=== PATIENT | female | born 1955 | race Two or more races ===

== ENCOUNTER 2017-06-01 22:19 | Emergency (ER) | payer BC, MEDICAID ==
[~2017-06-01] VITALS: Ht 154.9 cm; Wt 89.8 kg
[~2017-06-01 22:19] MED LIST: AZITHROMYCIN250 MG PO; CYCLOBENZAPRINE10 MG PO; DICLOFENAC SODI75 MG PO; LEVAQUIN500 MG PO; MOBIC15 MG PO; fosamax
[2017-06-01] MEDS ORDERED: LOSARTAN POTASS25 MG ORAL (22:32)
[2017-06-01] MEDS ORDERED: ATORVASTATIN CA20 MG ORAL (22:32)
[2017-06-01] MEDS ORDERED: ASPIR 8181 MG ORAL (22:32)
[2017-06-01] MEDS ORDERED: METFORMIN HCL500 M1 ORAL (22:32)
--- NOTE | 2017-06-01 22:55 | Emergency Room Report ---
History of Present Illness General Chief Complaint: Headache Source: Patient Present Illness HPI 62-year-old female, history of fibromyalgia, CAD with ? Stent (patient his insurance poor historian), complaining of one week of dyspnea and ear fullness and headache. States that she has shortness of breath both at rest and on exertion, worse with exertion. No chest pain. No fever no chills. Has had a dry cough. Also states that she has fullness in her left ear. Also complaining that she has had a slight left-sided headache, intermittent, no blurry vision, no neck pain. States that she has headaches similar to this in the past. Allergies: Uncoded Allergies: DYE (Allergy, Unknown, 10/15/10) Patient History Past Medical History: see triage record Past Surgical History: none Pertinent Family History: none Last Menstrual Period: n/a Reviewed Nursing Documentation: PMH: Agreed, PSxH: Agreed Nursing Documentation-PMH Hx Cardiac Problems: Yes - high cholesterol Hx Hypertension: Yes Hx Diabetes: Yes - dm2 Review of Systems All Other Systems: negative except mentioned in HPI Physical Exam Vital Signs Date Time Temp Pulse Resp B/P (MAP) Pulse Ox O2 Delivery O2 Flow Rate FiO2 06/01/17 22:24 97.5 63 16 155/94 97 Room Air Medical Decision Making Diagnostic Impression: Primary Impression: Dyspnea ER Course 62-year-old female, multiple complaints, left-sided headache, ear fullness, also one week of shortness of breath DDX: Left ears unremarkable Headache likely primary headache, migraine. No neurological signs or symptoms at this time to suggest acute intracranial pathology. Does not appear to be in pain right now and Shortness of breath: Viral URI, pneumonia, CHF, ACS. No PE risk factors. Plan: Obtain labs, ua, EKG, CXR ER course: Patient has been monitored during ED stay, HD stable conversing with family, nad LABS UNREMARKABLE she appears nontoxic Disposition: Patient is to be dc HOME Please note that this Emergency Department Report was dictated using [employer] winding machine operator technology software, occasionally this can lead to erroneous entry secondary to interpretation by the dictation equipment. EKG Diagnostic Results EP Interpretation: Yes Rate: normal Rhythm: NSR ST Segments: No acute changes ASA given to patient: No Rhythm Strip EP Interpretation: Yes Rate: [ ] Rhythm: NSR, no PVCs, no ectopy Chest X-ray* CXR: Ordered: Yes 1 view Indication: Shortness of breath EP interpretation: Yes Interpretation: No consolidation, no effusion, no PTX, no acute cardiopulmonary disease Impression: No acute disease Electronically signed by Romelia Jett MD Laboratory Tests Test 06/01/17 22:50 06/01/17 23:00 Urine Color Pale yellow Urine Appearance Clear Urine pH 8 (4.5-8.0) Urine Specific [place] 1.010 (1.005-1.035) Urine Protein Negative (NEGATIVE) Urine Glucose (UA) Negative (NEGATIVE) Urine Ketones Negative (NEGATIVE) Urine Occult Blood Negative (NEGATIVE) Urine Nitrite Negative (NEGATIVE) Urine Bilirubin Negative (NEGATIVE) Urine Urobilinogen Normal MG/DL (0.0-1.0) Urine Leukocyte Esterase Negative (NEGATIVE) White Blood Count 7.9 K/UL (4.8-10.8) Red Blood Count 4.54 M/UL (4.20-5.40) Hemoglobin 14.1 G/DL (12.0-16.0) Hematocrit 40.9 % (37.0-47.0) Mean Corpuscular Volume 90 FL (80-99) Mean Corpuscular Hemoglobin 31.2 PG (27.0-31.0) H Mean Corpuscular Hemoglobin Concent 34.6 G/DL (32.0-36.0) Red Cell Distribution Width 12.1 % (11.6-14.8) Platelet Count 258 K/UL (150-450) Mean Platelet Volume 8.4 FL (6.5-10.1) Neutrophils (%) (Auto) 55.4 % (45.0-75.0) Lymphocytes (%) (Auto) 30.6 % (20.0-45.0) Monocytes (%) (Auto) 8.3 % (1.0-10.0) Eosinophils (%) (Auto) 5.0 % (0.0-3.0) H Basophils (%) (Auto) 0.8 % (0.0-2.0) Sodium Level 140 MMOL/L (136-145) Potassium Level 3.8 MMOL/L (3.5-5.1) Chloride Level 105 MMOL/L (98-107) Carbon Dioxide Level 27 MMOL/L (21-32) Anion Gap 8 mmol/L (5-15) Blood Urea Nitrogen 11 mg/dL (7-18) Creatinine 0.7 MG/DL (0.55-1.30) Estimate Glomerular Filtration Rate > 60 mL/min (>60) Glucose Level 137 MG/DL (74-106) H Calcium Level 9.2 MG/DL (8.5-10.1) Total Bilirubin 0.4 MG/DL (0.2-1.0) Aspartate Amino Transferase (AST) 38 U/L (15-37) H Alanine Aminotransferase (ALT) 44 U/L (12-78) Alkaline Phosphatase 102 U/L (46-116) Troponin I 0.000 ng/mL (0.000-0.056) Pro-B-Type Natriuretic Peptide 45 pg/mL (0-125) Total Protein 8.0 G/DL (6.4-8.2) Albumin 3.7 G/DL (3.4-5.0) Globulin 4.3 g/dL Albumin/Globulin Ratio 0.9 (1.0-2.7) L Last Vital Signs Date Time Temp Pulse Resp B/P (MAP) Pulse Ox O2 Delivery O2 Flow Rate FiO2 06/01/17 22:24 97.5 63 16 155/94 97 Room Air Disposition: HOME, SELF-CARE Condition: Improved Patient Instructions: General Headache Without Cause, Shortness of Breath, Easy -to-Read Romelia Jett M.D. Jun 01, 2017 22:55
[2017-06-01 23:22] LABS: BASOPHILS % (AUTO) 0.8 % (0.0-2.0); HEMATOCRIT 40.9 % (37.0-47.0); HEMOGLOBIN 14.1 G/DL (12.0-16.0); LYMPHOCYTES % (AUTO) 30.6 % (20.0-45.0); MEAN CORPUSCULAR VOLUME 90 FL (80-99); MONOCYTES % (AUTO) 8.3 % (1.0-10.0); NEUTROPHILS % (AUTO) 55.4 % (45.0-75.0); PLATELET COUNT 258 K/UL (150-450); RED BLOOD COUNT 4.54 M/UL (4.20-5.40); RED CELL DISTRIBUTION WIDTH 12.1 % (11.6-14.8); WHITE BLOOD COUNT 7.9 K/UL (4.8-10.8)
[2017-06-01 23:24] LABS: APPEARANCE,URINE CLEAR; BILIRUBIN, URINE NEGATIVE (NEGATIVE); COLOR,URINE PALE YELLOW; GLUCOSE, URINE (UA) NEGATIVE (NEGATIVE); KETONES,URINE NEGATIVE (NEGATIVE); LEUKOCYTE ESTERASE ,URINE NEGATIVE (NEGATIVE); NITRITE,URINE NEGATIVE (NEGATIVE); PH,URINE 8 (4.5-8.0); PROTEIN,URINE NEGATIVE (NEGATIVE); UROBILINOGEN,URINE NORMAL MG/DL (0.0-1.0)
[2017-06-01 23:38] LABS: ANION GAP 8 mmol/L (5-15); BLOOD UREA NITROGEN 11 mg/dL (7-18); CALCIUM 9.2 MG/DL (8.5-10.1); CARBON DIOXIDE 27 MMOL/L (21-32); CHLORIDE 105 MMOL/L (98-107); CREATININE 0.7 MG/DL (0.55-1.30); POTASSIUM 3.8 MMOL/L (3.5-5.1); SODIUM 140 MMOL/L (136-145)
[2017-06-01 23:49] LABS: ALANINE AMINOTRANSFERASE 44 U/L (12-78); ALBUMIN 3.7 G/DL (3.4-5.0); ALBUMIN/GLOBULIN RATIO 0.9 (1.0-2.7); ALKALINE PHOSPHATASE 102 U/L (46-116); ASPARTATE AMINO TRANSFERASE 38 U/L (15-37); BILIRUBIN,TOTAL 0.4 MG/DL (0.2-1.0)
[2017-06-02] VITALS: BP 130/64
[2017-06-02 00:15] VITALS: BP 130/64
--- NOTE | 2017-06-02 10:37 | Diagnostic Imaging Report ---
Indication: Dyspnea Comparison: 03/01/2012 A single view chest radiograph was obtained. Findings: Cardiomediastinal appearance is within normal limits for age. Pulmonary vascularity is appropriate. The diaphragmatic contour is smooth and costophrenic angles are sharp. No pleural effusions are identified. The bones are osteopenic. Impression: No acute findings
--- NOTE | 2017-06-04 15:27 | Cardiology Report ---
APPROVED REPORT EKG Measurement Heart [id number] Normal sinus rhythm Normal ECG
== END 2017-06-02 00:30 | disposition home or self-care (01) ==
LOC: EMR 06-02 00:18
DX: R06.00 Dyspnea, unspecified (principal); R51 Headache; I10 Essential (primary) hypertension; E11.9 Type 2 diabetes mellitus without complications
CPT/HCPCS: 36415; 71045; 80053; 81003; 83880; 84484; 85025; 93005; 99284

== ENCOUNTER 2017-11-17 18:18 | Emergency (ER) | payer MEDICAID, OTHER ==
[~2017-11-17] VITALS: Ht 152.4 cm; Wt 84.8 kg
[~2017-11-17 18:18] MED LIST changes: +ASPIR 8181 MG ORAL; +ATORVASTATIN CA20 MG ORAL; +LOSARTAN POTASS25 MG ORAL; +METFORMIN HCL500 M1 ORAL
[2017-11-17] MEDS ORDERED: NKM (18:27)
--- NOTE | 2017-11-17 19:33 | Emergency Room Report ---
History of Present Illness General Chief Complaint: Upper Respiratory Illness Source: Patient Present Illness HPI 62-year-old female presents emergency department complaining of cough, body aches and not feeling well for 2 days. Patient is [place]ankan-speaking and requires [place]ankan translation for further details. Patient then refused to answer further questions and be evaluated as she states that she waited too long to be treated. Patient states that she still feels very sick but she'll find a way to see her doctor in the morning. This discussion took place with hide buyer and patient was advised that this is AGAINST MEDICAL ADVICE as we need to do our full assessment in order to properly diagnose and treat her as well as evaluate for a potential medical emergency. Pt. remained upset and requests a paper saying that she came to the ED and was not seen. D/w pt. this will be a copy of her AMA form. Allergies: Uncoded Allergies: DYE (Allergy, Unknown, 10/15/10) Patient History Last Menstrual Period: Post Nursing Documentation-PMH Hx Cardiac Problems: Yes - high cholesterol Hx Hypertension: Yes Hx Diabetes: Yes - dm2 Review of Systems All Other Systems: limited - pt. refusal to continue evaluation Physical Exam Vital Signs Date Time Temp Pulse Resp B/P (MAP) Pulse Ox O2 Delivery O2 Flow Rate FiO2 11/17/17 18:23 98.2 66 18 115/68 97 Room Air 98.2 Sp02 EP Interpretation: reviewed, normal General Appearance: no apparent distress, alert, GCS 15, non-toxic Head: normocephalic, atraumatic ENT: normal voice Respiratory: no respiratory distress, speaking full sentences, wheezing - scant expiratory Cardiovascular #1: regular rate, rhythm Neurologic: alert, oriented x3, responsive, normal gait, speech normal, grossly normal Skin: normal color Medical Decision Making PA Attestation Dr. Jett is my supervising Physician whom patient management has been discussed with. ER Course 62-year-old female presents emergency department complaining of cough, body aches and not feeling well for 2 days. Patient is [place]-speaking and requires [place]an translation for further details. Patient then refused to answer further questions and be evaluated as she states that she waited too long to be treated. Patient states that she still feels very sick but she'll find a way to see her doctor in the morning. This discussion took place with hide buyer and patient was advised that this is AGAINST MEDICAL ADVICE as we need to do our full assessment in order to properly diagnose and treat her as well as evaluate for a potential medical emergency. Pt. remained upset and requests a paper saying that she came to the ED and was not seen. D/w pt. this will be a copy of her AMA form. differentials that I'm considering that this patient may have based on limited HPI/ROS, general appearance and only auscultation of heart and lungs: bronchitis, URI, CHF, COPD/asthma, ACS, LA, or pneumonia just to name a few. DISPOSITION: Pt. Requests AMA. - At this time the patient is requesting to leave AGAINST MEDICAL ADVICE. I believe that this patient has the capacity to make decisions on Her own. I discussed with the patient the risks of leaving AMA. Some of these risks include delay in diagnosis and treatment, as well as worsening of symptoms, organ damage, and permanent disability or even . After discussing these risks with the patient. She continues to express her desire to leave AGAINST MEDICAL ADVICE. I encouraged the patient to return at any time, and that she will be welcome here in the emergency department to continue medical evaluation and management. AMA form signed 7:28 PM [place]an translation by Santiago. Last Vital Signs Date Time Temp Pulse Resp B/P (MAP) Pulse Ox O2 Delivery O2 Flow Rate FiO2 11/17/17 18:23 98.2 66 18 115/68 97 Room Air 98.2 Disposition: AGAINST MEDICAL ADVICE Condition: Unknown Swati Burns Nov 17, 2017 19:33
[2017-11-17 19:35] VITALS: BP 115/68
== END 2017-11-17 19:35 | disposition left against medical advice (07) ==
LOC: EMR 18:50
DX: R05 Cough (principal); R52 Pain, unspecified; I10 Essential (primary) hypertension; E11.9 Type 2 diabetes mellitus without complications; E78.00 Pure hypercholesterolemia, unspecified
CPT/HCPCS: 99282

== ENCOUNTER 2020-07-13 22:21 | Emergency (ER) | payer OTHER, MEDICARE ==
[~2020-07-13] VITALS: Ht 160 cm; Wt 79.4 kg
[~2020-07-13 22:21] MED LIST changes: +NKM
--- NOTE | 2020-07-13 22:40 | Emergency Room Report ---
History of Present Illness General Chief Complaint: To Be Triaged Present Illness HPI 65-year-old female with history of CAD, hyperlipidemia, breast cancer currently on chemotherapy, here with sudden onset headache and nausea. Patient says that she ate a tortilla with corn and meat and then approximately 30 minutes later began to feel sudden onset epigastric abdominal pain and vomited twice nonbilious nonbloody. Has begun to feel a generalized headache as well that start about 30 minutes prior to coming to the emergency department. Says that she took her blood pressure after the symptoms started and it was 180 systolic. Does not take any medications for her blood pressure. Says headache is diffuse, dull in nature, does not radiate. Denies vision changes, focal numbness weakness, chest pain, palpitations, shortness of breath, back pain, diarrhea, dysuria. Allergies: Coded Allergies: IODINE AND IODIDE CONTAINING PRODUC (Verified Allergy, Unknown, 07/13/20) Uncoded Allergies: DYE (Allergy, Unknown, 10/15/10) Nursing Documentation-PMH Hx Cardiac Problems: Yes - high cholesterol Hx Hypertension: Yes Hx Diabetes: Yes - dm2 Review of Systems All Other Systems: negative except mentioned in HPI Physical Exam Sp02 EP Interpretation: reviewed, normal General Appearance: no apparent distress, alert, non-toxic Head: normocephalic, atraumatic Eyes: bilateral eye normal inspection, bilateral eye PERRL ENT: hearing grossly normal, normal pharynx, no angioedema, normal voice Neck: full range of motion, supple/symm/no masses Respiratory: chest non-tender, lungs clear, normal breath sounds, speaking full sentences Cardiovascular #1: regular rate, rhythm, no edema Cardiovascular #2: 2+ carotid (R), 2+ carotid (L), 2+ radial (R), 2+ radial (L), 2+ dorsalis pedis (R), 2+ dorsalis pedis (L) Gastrointestinal: normal bowel sounds, non tender, soft, non-distended, no guarding, no rebound, other - Midline surgical scar status post cholecystectomy. No distention or rebound or guarding Rectal: deferred Genitourinary: normal inspection, no CVA tenderness Musculoskeletal: back normal, normal range of motion, gait/station normal, non- tender Neurologic: alert, motor strength/tone normal, oriented x3, sensory intact, responsive, speech normal Psychiatric: judgement/insight normal, memory normal, mood/affect normal, no suicidal/homicidal ideation, anxious Lymphatic: no adenopathy Medical Decision Making Diagnostic Impression: Primary Impression: UTI (urinary tract infection) Additional Impression: Headache ER Course EKG: NSR, no ischemia, intervals WNL. No ectopy. Rate 48 bpm Rhythm strip: patient monitored for arrhythmias - no malignant dysrhythmias, runs of PVCs, nor pauses noted Head CT: Unremarkable study Laboratory Tests Test 07/13/20 23:10 07/13/20 23:40 White Blood Count 12.2 K/UL (4.8-10.8) H Red Blood Count 5.00 M/UL (4.20-5.40) Hemoglobin 15.1 G/DL (12.0-16.0) Hematocrit 44.2 % (37.0-47.0) Mean Corpuscular Volume 88 FL (80-99) Mean Corpuscular Hemoglobin 30.1 PG (27.0-31.0) Mean Corpuscular Hemoglobin Concent 34.1 G/DL (32.0-36.0) Red Cell Distribution Width 13.3 % (11.6-14.8) Platelet Count 265 K/UL (150-450) Mean Platelet Volume 9.6 FL (6.5-10.1) Neutrophils (%) (Auto) 66.6 % (45.0-75.0) Lymphocytes (%) (Auto) 26.2 % (20.0-45.0) Monocytes (%) (Auto) 6.8 % (1.0-10.0) Eosinophils (%) (Auto) 0.0 % (0.0-3.0) Basophils (%) (Auto) 0.4 % (0.0-2.0) Sodium Level 142 MMOL/L (136-145) Potassium Level 4.1 MMOL/L (3.5-5.1) Chloride Level 106 MMOL/L (98-107) Carbon Dioxide Level 24 MMOL/L (21-32) Anion Gap 12 mmol/L (5-15) Blood Urea Nitrogen 28 mg/dL (7-18) H Creatinine 0.9 MG/DL (0.55-1.30) Estimated Glomerular Filtration Rate > 60 mL/min (>60) Glucose Level 252 MG/DL (74-106) H Calcium Level 9.7 MG/DL (8.5-10.1) Total Bilirubin 0.3 MG/DL (0.2-1.0) Aspartate Amino Transferase (AST) 27 U/L (15-37) Alanine Aminotransferase (ALT) 29 U/L (12-78) Alkaline Phosphatase 137 U/L (46-116) H Troponin I 0.000 ng/mL (0.000-0.056) Pro-B-Type Natriuretic Peptide 317 pg/mL (0-125) H Total Protein 8.5 G/DL (6.4-8.2) H Albumin 4.0 G/DL (3.4-5.0) Globulin 4.5 g/dL Albumin/Globulin Ratio 0.9 (1.0-2.7) L Urine Color Pale yellow Urine Appearance Slightly cloudy Urine pH 6.5 (4.5-8.0) Urine Specific [place] 1.020 (1.005-1.035) Urine Protein 2+ (NEGATIVE) H Urine Glucose (UA) 2+ (NEGATIVE) H Urine Ketones 1+ (NEGATIVE) H Urine Blood 1+ (NEGATIVE) H Urine Nitrite Negative (NEGATIVE) Urine Bilirubin Negative (NEGATIVE) Urine Urobilinogen Normal MG/DL (0.0-1.0) Urine Leukocyte Esterase 3+ (NEGATIVE) H Urine RBC 0-2 /HPF (0 - 2) Urine WBC 30-40 /HPF (0 - 2) H Urine Squamous Epithelial Cells Many /LPF (NONE/OCC) H Urine Bacteria Moderate /HPF (NONE) H 65-year-old female here with nausea and vomiting and headache an hour after eating a tortilla with corn and meat. Patient was hypertensive on arrival and appeared to be acutely uncomfortable. She was highly anxious. She was given morphine, Zofran, hydralazine with good resolution of her hypertension. EKG unremarkable. CBC, CMP, troponin all within normal limits. Head CT normal. Urinalysis did show evidence of urinary tract infection. Patient was given 1 dose of Rocephin in the emergency department and prescription for Keflex. Given prescription for Zofran. Told to return with any worsening symptoms. She expressed understanding and was discharged. Scripts Ondansetron Odt* (ZOFRAN ODT*) 8 Mg Tab.rapdis 8 MG ORAL Q6H PRN for Nausea & Vomiting, #12 TAB Prov: Cesar Boo M.D. 07/14/20 Cephalexin* (KEFLEX*) 500 Mg Capsule 500 MG ORAL EVERY 12 HOURS, #14 CAP 0 Refills Prov: Cesar Boo M.D. 07/14/20 Cesar Boo M.D. Jul 13, 2020 22:40
[2020-07-13] MEDS ORDERED: Morphine Sulfate 4mg/ml Inj (IV USE ONLY) IVP ONE (22:45)
--- NOTE | 2020-07-13 22:50 | NUR ---
ED Nurse Note: Patient came in the ED, accompanied by her daughter, patient is complaining of H/A 10/10, vomiting and elevated blood pressure and dizziness. Denies SOB, chest pain, palpitation or any blurred vision
[2020-07-13] MEDS ORDERED: OMEPRAZOLE20 M2 ORAL (22:54)
[2020-07-13] MEDS ORDERED: FOLIC ACID1 MG ORAL (22:54)
[2020-07-13] MEDS ORDERED: VITAMIN D325 MC1 PO (22:55)
[2020-07-13] MEDS ORDERED: ARIMIDEX1 MG ORAL (22:55)
[2020-07-13] MEDS ORDERED: LEFLUNOMIDE10 MG PO (22:56)
[2020-07-13] MEDS ORDERED: LORATADINE10 M1 PO (22:56)
--- NOTE | 2020-07-13 23:00 | NUR ---
Note ken in ED - 07/14/20 at 0248 by JUNE Patient reports feeling well, denies headache, vomiting. will continue to monitnor patient. Daughter at bedside.
[2020-07-13 23:35] VITALS: BP 123/60
[2020-07-13 23:36] LABS: BASOPHILS % (AUTO) 0.4 % (0.0-2.0); HEMATOCRIT 44.2 % (37.0-47.0); HEMOGLOBIN 15.1 G/DL (12.0-16.0); LYMPHOCYTES % (AUTO) 26.2 % (20.0-45.0); MEAN CORPUSCULAR VOLUME 88 FL (80-99); MONOCYTES % (AUTO) 6.8 % (1.0-10.0); NEUTROPHILS % (AUTO) 66.6 % (45.0-75.0); PLATELET COUNT 265 K/UL (150-450); RED CELL DISTRIBUTION WIDTH 13.3 % (11.6-14.8); WHITE BLOOD COUNT 12.2 K/UL (4.8-10.8)
[2020-07-13 23:39] LABS: ANION GAP 12 mmol/L (5-15); BLOOD UREA NITROGEN 28 mg/dL (7-18); CALCIUM 9.7 MG/DL (8.5-10.1); CARBON DIOXIDE 24 MMOL/L (21-32); CHLORIDE 106 MMOL/L (98-107); CREATININE 0.9 MG/DL (0.55-1.30); POTASSIUM 4.1 MMOL/L (3.5-5.1); SODIUM 142 MMOL/L (136-145)
[2020-07-13 23:45] LABS: BILIRUBIN, URINE NEGATIVE (NEGATIVE); COLOR,URINE PALE YELLOW; GLUCOSE, URINE (UA) 2+ (NEGATIVE); KETONES,URINE 1+ (NEGATIVE); LEUKOCYTE ESTERASE ,URINE 3+ (NEGATIVE); NITRITE,URINE NEGATIVE (NEGATIVE); PH,URINE 6.5 (4.5-8.0); PROTEIN,URINE 2+ (NEGATIVE); UROBILINOGEN,URINE NORMAL MG/DL (0.0-1.0)
[2020-07-13 23:49] LABS: ALANINE AMINOTRANSFERASE 29 U/L (12-78); ALBUMIN/GLOBULIN RATIO 0.9 (1.0-2.7); ALKALINE PHOSPHATASE 137 U/L (46-116); ASPARTATE AMINO TRANSFERASE 27 U/L (15-37); BILIRUBIN,TOTAL 0.3 MG/DL (0.2-1.0)
[2020-07-13 23:53] LABS: APPEARANCE,URINE SLIGHTLY CLOUDY
[2020-07-14] MEDS ORDERED: Dicyclomine HCl 10mg/5ml oral soln ORAL ONE
[2020-07-14] MEDS ORDERED: Lidocaine 2% Visc 15ml soln ORAL ONE
[2020-07-14] MEDS ORDERED: cefTRIAXone 1 GM in NS 55 ML IVPB ONE ×2
[2020-07-14] MEDS ORDERED: Mylanta II UD 30ml ORAL ONE
--- NOTE | 2020-07-14 | NUR ---
ED Nurse Note: Patient in bed, resting comfortably. Denies headache, N/V, pt's daughter at bedside.
--- NOTE | 2020-07-14 00:12 | Diagnostic Imaging Report ---
EXAM: CT Head Without Intravenous Contrast CLINICAL HISTORY: HTN TECHNIQUE: Axial computed tomography images of the head/brain without intravenous contrast. CTDI is 53.40 mGy and DLP is 1018.80 mGy-cm. One or more of the following dose reduction techniques were used: automated exposure control, adjustment of the mA and/or kV according to patient size, use of iterative reconstruction technique. COMPARISON: No relevant prior studies available. FINDINGS: Brain: Unremarkable. No hemorrhage. No significant white matter disease. No edema. Ventricles: Unremarkable. No ventriculomegaly. Bones/joints: Unremarkable. No acute fracture. Soft tissues: Unremarkable. Sinuses: Unremarkable as visualized. No acute sinusitis. Mastoid air cells: Unremarkable as visualized. No mastoid effusion. IMPRESSION: Unremarkable head/brain CT.
[2020-07-14] MEDS ORDERED: ZOFRAN ODT8 MG ORAL ×2 (00:17→02:02)
[2020-07-14] MEDS ORDERED: CEPHALEXIN500 MG ORAL ×2 (00:17→02:02)
[2020-07-14] MEDS ORDERED: Acetaminophen Soln 160mg/5ml ORAL ONE (01:30)
--- NOTE | 2020-07-14 02:57 | NUR ---
ER DISCHARGE NOTE: Patient is cleared to be discharged per ERMD, pt is aox4, on room air, with stable vital signs. pt was given dc and prescription instructions, pt was able to verbalize understanding, pt id band and iv site removed without complications. pt is able to ambulate with steady gait. pt took all belongings.
== END 2020-07-14 02:15 | disposition home or self-care (01) ==
LOC: EMR 22:38
DX: N39.0 Urinary tract infection, site not specified (principal); R51.9 Headache, unspecified; E78.00 Pure hypercholesterolemia, unspecified; E11.9 Type 2 diabetes mellitus without complications; Z91.041 Radiographic dye allergy status; I11.9 Hypertensive heart disease without heart failure; I25.10 Atherosclerotic heart disease of native coronary artery without angina pectoris; Z90.49 Acquired absence of other specified parts of digestive tract
CPT/HCPCS: 36415; 70450; 80053; 81003; 83880; 84484; 85025; 87086; 93005; 96365; 96375; 96376; J0360; J0696; J2270; J2405; Z7502; 99284

== ENCOUNTER 2020-07-20 10:21 | Emergency (ER) | payer OTHER, MEDICARE ==
[~2020-07-20] VITALS: Ht 157.5 cm; Wt 75.3 kg
[~2020-07-20 10:21] MED LIST changes: +ARIMIDEX1 MG ORAL; +CEPHALEXIN500 MG ORAL; +FOLIC ACID1 MG ORAL; +LEFLUNOMIDE10 MG PO; +LORATADINE10 M1 PO; +OMEPRAZOLE20 M2 ORAL; +VITAMIN D325 MC1 PO; +ZOFRAN ODT8 MG ORAL
--- NOTE | 2020-07-20 10:44 | NUR ---
Patient presents to the ER for vomiting, abdominal pain and headache x 1 week. AAOX4. She reports that she feels shaky with palpitations to the left side of her head. She reports that she must keep her eyes close to keep from feeling lightheaded. Had blood work and CTA done last week at this facility but all that was found was UTI DX. Medical history of right-sided breast CA, left sided knee surgery, gall bladder removal and ectopic .
[2020-07-20 10:46] VITALS: BP 131/82
--- NOTE | 2020-07-20 10:50 | Emergency Room Report ---
History of Present Illness General Chief Complaint: Abdominal Pain Source: Patient, Family Member - daughter Present Illness HPI Patient is a 65-year-old female past medical history of hypertension who presents to the ER complaining of headache. Patient states that she was seen here a week ago with headache. She states that she had a CT and lab work done which demonstrated UTI. Patient has been on Keflex for the past week. Patient complains of persistent headache around her temples and the base of her skull. She states that the headache started little by little and did not have sudden onset of headache. She denies any neck stiffness, fever or chills. She states that she has photophobia and phonophobia. She denies any chest pain or shortness of breath. She denies any abdominal pain, nausea or vomiting. In triage note it is noted that she has abdominal pain but when I asked the patient she states that that was from last week when she had epigastric pain no current abdominal pain. She is not taking any medications for her headache at home. Allergies: Coded Allergies: IODINE AND IODIDE CONTAINING PRODUC (Verified Allergy, Unknown, 07/13/20) Uncoded Allergies: DYE (Allergy, Unknown, 10/15/10) COVID-19 Screening Contact w/high risk pt: No Experienced COVID-19 symptoms?: No COVID-19 Testing performed [employer]: Yes - 2 weeks ago COVID-19 Screening: Negative COVID-19 COVID-19 Testing Source: Doctor's office Patient History Now: No : 3 Para: 2 Reviewed Nursing Documentation: PMH: Agreed; PSxH: Agreed Nursing Documentation-PMH Hx Hypertension: Yes Hx Diabetes: Yes - dm2 Physical Exam Vital Signs Date Time Temp Pulse Resp B/P (MAP) Pulse Ox O2 Delivery O2 Flow Rate FiO2 07/20/20 10:27 99.3 66 16 131/72 (91) 100 Room Air Medical Decision Making Diagnostic Impression: Primary Impression: Headache ER Course Patient given IV fluids, IV Reglan IV Benadryl and IV Toradol. On reevaluation she states that her headache has resolved. She feels much improved. Her labs demonstrate mild leukocytosis which is also present last week. Patient has no fever. ESR was normal I was concerned about temporal arteritis. CT was done 1 week ago and was unremarkable. I suspect the headache that the patient is presenting with is non-emergent in etiology. Meningitis and encephalitis were considered unlikely given patient has no significant fever, focal neurological deficits, petechiae, seizure like symptoms, nuchal rigidity, kernig sign, or brudzinski sign. Ischemic and hemorrhagic CVA also considered unlikely given no new focal neurological deficits, amnesia, slurred speech, or aphasia. In addition, patient reports gradual onset of NEWMAN and not a sudden onset/severe NEWMAN so I highly doubt SAH. Head CT was negative for any acute abnormal findings one week ago. The patient was counseled that, though unlikely, the possibility of an emergent cause of headache may still be present and that the patient should return immediately if symptoms persists or worsen. I believe the patient is stable for discharge to follow-up with their PMD. Laboratory Tests Test 07/20/20 10:55 07/20/20 13:00 White Blood Count 13.2 K/UL (4.8-10.8) H Red Blood Count 5.03 M/UL (4.20-5.40) Hemoglobin 14.9 G/DL (12.0-16.0) Hematocrit 45.1 % (37.0-47.0) Mean Corpuscular Volume 90 FL (80-99) Mean Corpuscular Hemoglobin 29.7 PG (27.0-31.0) Mean Corpuscular Hemoglobin Concent 33.1 G/DL (32.0-36.0) Red Cell Distribution Width 13.0 % (11.6-14.8) Platelet Count 224 K/UL (150-450) Mean Platelet Volume 9.1 FL (6.5-10.1) Neutrophils (%) (Auto) 82.8 % (45.0-75.0) H Lymphocytes (%) (Auto) 11.2 % (20.0-45.0) L Monocytes (%) (Auto) 5.1 % (1.0-10.0) Eosinophils (%) (Auto) 0.5 % (0.0-3.0) Basophils (%) (Auto) 0.4 % (0.0-2.0) Erythrocyte Sedimentation Rate 26 MM/HR (0-30) Urine Color Yellow Urine Appearance Slightly cloudy Urine pH 6.5 (4.5-8.0) Urine Specific [place] 1.015 (1.005-1.035) Urine Protein 2+ (NEGATIVE) H Urine Glucose (UA) Negative (NEGATIVE) Urine Ketones 1+ (NEGATIVE) H Urine Blood Negative (NEGATIVE) Urine Nitrite Negative (NEGATIVE) Urine Bilirubin Negative (NEGATIVE) Urine Urobilinogen 1 MG/DL (0.0-1.0) H Urine Leukocyte Esterase 1+ (NEGATIVE) H Urine RBC 0 /HPF (0 - 2) Urine WBC 0-2 /HPF (0 - 2) Urine Squamous Epithelial Cells Few /LPF (NONE/OCC) Urine Bacteria Few /HPF (NONE) Urine Mucus Moderate /LPF (NONE/OCC) H Sodium Level 140 MMOL/L (136-145) Potassium Level 3.6 MMOL/L (3.5-5.1) Chloride Level 106 MMOL/L (98-107) Carbon Dioxide Level 24 MMOL/L (21-32) Anion Gap 11 mmol/L (5-15) Blood Urea Nitrogen 9 mg/dL (7-18) Creatinine 0.6 MG/DL (0.55-1.30) Estimated Glomerular Filtration Rate > 60 mL/min (>60) Glucose Level 138 MG/DL (74-106) H Calcium Level 8.3 MG/DL (8.5-10.1) L Magnesium Level 2.2 MG/DL (1.8-2.4) Total Bilirubin 0.7 MG/DL (0.2-1.0) Aspartate Amino Transferase (AST) 16 U/L (15-37) Alanine Aminotransferase (ALT) 16 U/L (12-78) Alkaline Phosphatase 99 U/L (46-116) C-Reactive Protein, Quantitative 2.0 mg/dL (0.00-0.90) H Total Protein 7.3 G/DL (6.4-8.2) Albumin 3.3 G/DL (3.4-5.0) L Globulin 4.0 g/dL Albumin/Globulin Ratio 0.8 (1.0-2.7) L Last Vital Signs Date Time Temp Pulse Resp B/P (MAP) Pulse Ox O2 Delivery O2 Flow Rate FiO2 07/20/20 10:27 99.3 66 16 131/72 (91) 100 Room Air Disposition: HOME, SELF-CARE Condition: Stable Scripts Metoclopramide Hcl* (REGLAN*) 10 Mg Tablet 10 MG ORAL THREE TIMES A DAY, #14 TAB Prov: Inna Jones M.D. 07/20/20 Ibuprofen* (MOTRIN*) 600 Mg Tablet 600 MG ORAL FOUR TIMES A DAY, #30 TAB 0 Refills Prov: Inna Jones M.D. 07/20/20 Referrals: NON PHYSICIAN (PCP) Additional Instructions: The patient was provided with discharge instructions, notified to follow-up with a primary care doctor and or specialist in the next 24-48 hours, and to return to the ED if they have worsening of their symptoms. Please note that this report is being documented using [employer] technology. This can lead to erroneous entry secondary to incorrect interpretation by the dictating instrument. Inna Jones M.D. Jul 20, 2020 10:50
[2020-07-20] MEDS ORDERED: Metoclopramide 10mg/2ml Inj IVP ONE (11:00)
[2020-07-20] MEDS ORDERED: Ketorolac 30mg Inj IV ONE (11:00)
[2020-07-20] MEDS ORDERED: DiphenhydrAMINE 50mg/ml Inj IVP ONE (11:00)
[2020-07-20 11:25] LABS: APPEARANCE,URINE SLIGHTLY CLOUDY; BILIRUBIN, URINE NEGATIVE (NEGATIVE); GLUCOSE, URINE (UA) NEGATIVE (NEGATIVE); KETONES,URINE 1+ (NEGATIVE); LEUKOCYTE ESTERASE ,URINE 1+ (NEGATIVE); NITRITE,URINE NEGATIVE (NEGATIVE); PH,URINE 6.5 (4.5-8.0); PROTEIN,URINE 2+ (NEGATIVE); UROBILINOGEN,URINE 1 MG/DL (0.0-1.0)
[2020-07-20 11:26] LABS: COLOR,URINE YELLOW
[2020-07-20 11:27] LABS: BASOPHILS % (AUTO) 0.4 % (0.0-2.0); EOSINOPHILS % (AUTO) 0.5 % (0.0-3.0); HEMATOCRIT 45.1 % (37.0-47.0); HEMOGLOBIN 14.9 G/DL (12.0-16.0); LYMPHOCYTES % (AUTO) 11.2 % (20.0-45.0); MEAN CORPUSCULAR VOLUME 90 FL (80-99); MONOCYTES % (AUTO) 5.1 % (1.0-10.0); NEUTROPHILS % (AUTO) 82.8 % (45.0-75.0); PLATELET COUNT 224 K/UL (150-450); RED BLOOD COUNT 5.03 M/UL (4.20-5.40); WHITE BLOOD COUNT 13.2 K/UL (4.8-10.8)
[2020-07-20 13:35] LABS: ANION GAP 11 mmol/L (5-15); BLOOD UREA NITROGEN 9 mg/dL (7-18); CALCIUM 8.3 MG/DL (8.5-10.1); CARBON DIOXIDE 24 MMOL/L (21-32); CHLORIDE 106 MMOL/L (98-107); CREATININE 0.6 MG/DL (0.55-1.30); POTASSIUM 3.6 MMOL/L (3.5-5.1); SODIUM 140 MMOL/L (136-145)
[2020-07-20 13:39] LABS: ALANINE AMINOTRANSFERASE 16 U/L (12-78); ALBUMIN 3.3 G/DL (3.4-5.0); ALBUMIN/GLOBULIN RATIO 0.8 (1.0-2.7); ALKALINE PHOSPHATASE 99 U/L (46-116); ASPARTATE AMINO TRANSFERASE 16 U/L (15-37); BILIRUBIN,TOTAL 0.7 MG/DL (0.2-1.0)
[2020-07-20] MEDS ORDERED: IBUPROFEN600 M1 ORAL (13:46)
[2020-07-20] MEDS ORDERED: REGLAN10 MG ORAL (13:46)
[2020-07-20 14:04] VITALS: BP 127/89
== END 2020-07-20 14:05 | disposition home or self-care (01) ==
LOC: EMR 10:33
DX: R51.9 Headache, unspecified (principal); Z91.041 Radiographic dye allergy status; E11.9 Type 2 diabetes mellitus without complications; I10 Essential (primary) hypertension
CPT/HCPCS: 36415; 80053; 81003; 83735; 85025; 85651; 86140; 96361; 96374; 96375; J1200; J1885; J2765; J7030; Z7502; 99284